=== PATIENT | female | born 1975 | race Caucasian/White ===

== ENCOUNTER 2022-04-25 17:00 | Emergency (ER) | payer OTHER, SELFPAY ==
--- NOTE | 2022-04-25 17:02 | ED.URI ---
HPI - URI/Sore Throat General Chief Complaint: Upper Respiratory Infection Stated Complaint: sore throat Time Seen by Provider: 04/25/22 17:12 Source: patient and RN notes reviewed Mode of arrival: ambulatory Limitations: no limitations History of Present Illness HPI Narrative: 47-year-old female presents concern for sore throat with white patches on her tonsils it started today. She reports a headache. She denies nasal congestion, rhinorrhea, cough, body aches, chills, sweats. MD elicited complaint: sore throat Related Data Home Medications Medication Instructions Recorded Confirmed budesonide 3 mg 3 mg PO DAILY 04/25/22 04/25/22 capsule,delayed,extended release citalopram 10 mg tablet 10 mg PO DAILY 04/25/22 04/25/22 trazodone 50 mg tablet 50 mg PO HS 04/25/22 04/25/22 Allergies Allergy/AdvReac Type Severity Reaction Status Date / Time No Known Allergies Allergy Mild Unverified 04/25/22 17:09 Review of Systems Review of Systems: CONSTITUTIONAL: Denies malaise, chills, sweats, or fever. EYES: Denies visual changes, redness, or discharge. ENT: Denies rhinorrhea, congestion, sinus pain, otalgia. Reports sore throat. CARDIOVASCULAR: Denies chest pain, palpitations, or edema. RESPIRATORY: Denies cough. Denies dyspnea. GASTROINTESTINAL: Denies abdominal pain, nausea, vomiting, diarrhea SKIN: Denies rash or itching. MUSCULOSKELETAL: Denies myalgia. NEUROLOGIC: Reports headache. All systems reviewed & are unremarkable except as noted in HPI and below PMFSH Family History Family History (Updated 09/24/18 @ 14:23 by DOCTOR UNKNOWN) Grandparent Diabetes mellitus Hypertension Cerebrovascular accident Carcinoma of colon Mother Family history of hypercholesterolemia Hypertension Father Hypertension Social History Social History Smoking status: Never smoker Alcohol intake: current Comments At time of signature, agree with nursing past medical, surgical, social and family history. There is no relevant family history pertinent to the presenting complaint Exam Narrative: GENERAL: Well-appearing, well-nourished, and in no acute distress. HEAD: Normocephalic EYES: PERRLA, conjunctivae clear ENT: Nares clear, no discharge. Mucous membranes moist. TM pearly hill with dull light reflex bilaterally; no tragal tenderness. Oropharynx mildly erythematous without lesions. Tonsils mildly enlarged and without exudate, no drooling, no hoarseness, no trismus, uvula midline. NECK: Supple. No lymphadenopathy CHEST: Clear to auscultation, breath sounds equal. No wheezing, rhonchi, rales, or stridor. No respiratory distress, speaks in full sentences. HEART: Regular rate and rhythm. No murmur heard. SKIN: Warm, dry, no rash. NEURO: Alert and oriented x3. PSYCH: Normal mood and affect Course Course Emergency Course: Patient is aware of diagnosis, understands and agrees to treatment plan. Anticipatory guidance given. Patient agrees to follow-up as directed and is aware of reasons to seek care at the emergency department. Portions of this record may have been created with voice recognition software Level of Care: Express Care Visit Vital Signs Vital signs: Reviewed. MDM - URI/Sore Throat MDM Narrative Medical decision making narrative: Differential diagnosis considered: Villa virus, strep pharyngitis, allergic rhinitis, upper respiratory tract infection, sinusitis, rhinosinusitis, nasopharyngitis. viral pharyngitis, otitis media, otitis externa, pneumonia, bronchitis, viral cough syndrome, viral syndrome, and influenza. Exam findings show no acute concerns or changes; patient is non-toxic appearing and is in no distress. Patient is appropriate for outpatient treatment and follow-up. Lab Data Attestation: I reviewed the patient's lab results. Critical Care Time Critical Care Time Critical Care Time: No Discharge Plan Discharge Clinical Impression: Pharyngitis Patient Disposition: Home, Self
[2022-04-25 17:10] VITALS: BP 137/73; PULSE 72; RESP 16; TEMP 37; O2SAT 100
== END 2022-04-25 17:43 | disposition home or self-care (01) ==
PROVIDERS: Emergency Provider Nurse Practitioner
DX: J02.9 Acute pharyngitis, unspecified (principal); Z20.822 Contact with and (suspected) exposure to COVID-19
CPT/HCPCS: 87081; 87426; 87804; 99203; C9803; G0463

== ENCOUNTER 2023-02-20 16:10 | Emergency (ER) | payer OTHER, SELFPAY ==
[2023-02-20 16:17] VITALS: BP 116/74; PULSE 68; RESP 16; TEMP 36.8; O2SAT 100
--- NOTE | 2023-02-20 16:22 | ED.URI ---
HPI - URI/Sore Throat General Stated Complaint: EARACHE Time Seen by Provider: 02/20/23 16:22 Source: patient Mode of arrival: ambulatory Limitations: no limitations History of Present Illness HPI Narrative: Patient is a 48-year-old female presents with right ear pain that started a week ago. Patient has taken ibuprofen once with no relief. Reports pain has just increased and feels like there is fluid in her ear. Denies any congestion, sore throat, cough, fever, chills, nausea, vomiting, diarrhea. Related Data Home Medications Medication Instructions Recorded Confirmed budesonide 3 mg 3 mg PO DAILY 04/25/22 04/25/22 capsule,delayed,extended release citalopram 10 mg tablet 10 mg PO DAILY 04/25/22 04/25/22 trazodone 50 mg tablet 50 mg PO HS 04/25/22 04/25/22 Allergies Allergy/AdvReac Type Severity Reaction Status Date / Time No Known Allergies Allergy Mild Unverified 04/25/22 17:09 Review of Systems Review of Systems: All systems reviewed & are unremarkable except as noted in HPI and below Constitutional: Constitutional: Denies body ache(s), Denies chills, Denies fever(s), Denies headache(s) and Denies malaise Eyes: Eyes: Denies blurry vision, Denies eye discharge and Denies irritation ENT: Reports otalgia, Denies headache(s), Denies nasal congestion, Denies nasal discharge and Denies sore throat Cardiovascular: Cardiovascular: Denies chest pain, Denies edema, Denies palpitations and Denies dyspnea on exertion Respiratory: Respiratory: Denies cough and Denies dyspnea on exertion Gastrointestinal: Gastrointestinal: Denies abdominal pain, Denies diarrhea, Denies nausea and Denies vomiting Musculoskeletal: Musculoskeletal: Denies back pain, Denies arthralgias and Denies muscle weakness Integumentary/Breasts: Skin/Breast: Denies pruritus and Denies rash Neurologic: Denies headache(s) Psychiatric: Psychiatric: Reports no additional psychiatric complaints Endocrine: Endocrine: Denies palpitations PMFSH Family History Family History Grandparent Diabetes mellitus Hypertension Cerebrovascular accident Carcinoma of colon Mother Family history of hypercholesterolemia Hypertension Father Hypertension Social History Social History (Reviewed 02/20/23 @ 16:46 by RADHA Barrios Smoking status: Never smoker Alcohol intake: current Comments At time of signature, agree with nursing past medical, surgical, social and family history. There is no relevant family history pertinent to the presenting complaint? Exam Const: General: cooperative, healthy appearing, no acute distress and well nourished Nutritional Appearance: well nourished Orientation/consciousness: patient oriented x3 Limitations: no limitations HENMT: Head: normal to inspection, normocephalic and atraumatic Ears: hearing grossly normal bilaterally, TM normal on the left, EAC's normal, no periauricular adenopathy and TM abnormal bulging on the right and erythematous on the right Face/Nose/Sinus: Normal external nose present, Normal nares present, Normal nasal mucous membranes and turbinates present, No nasal discharge present, normal facial exam and sinuses nontender Face and sinus: normal facial exam and sinuses nontender Mouth: Yes Normal oral and palatal mucosa present, Yes lip normal, Yes tongue normal and Yes moist mucous membranes Throat: posterior oropharynx normal, tonsils normal and uvula midline Eyes: General: appearance normal, both eyes and all related structures Alignment and Position: alignment normal and position normal Eyelids: eyelids normal Pupils: Equal, round and reactive pupils present EOM: EOMs intact bilaterally Neck: Neck: normal visual inspection, full ROM, no lymphadenopathy and supple Chest: Chest palpation & inspection: normal inspection of the chest Resp: Effort & Inspection: normal respiratory effort and able to speak in complete sentences
== END 2023-02-20 16:49 | disposition home or self-care (01) ==
PROVIDERS: Emergency Provider Nurse Practitioner Family
DX: H66.001 Acute suppurative otitis media without spontaneous rupture of ear drum, right ear (principal)
CPT/HCPCS: 99213; G0463

== ENCOUNTER 2023-03-10 16:31 | Emergency (ER) | payer OTHER, SELFPAY ==
[2023-03-10 16:52] VITALS: BP 111/74; PULSE 80; RESP 16; TEMP 36.3; O2SAT 100
--- NOTE | 2023-03-10 17:37 | ED.FEMALEGU ---
HPI - Female Genitourinary General Chief complaint: Urogenital-Female Stated complaint: Uti symptoms Source: patient and RN notes reviewed Mode of arrival: ambulatory Limitations: no limitations History of Present Illness HPI Narrative: 48-year-old female presenting for concern for UTI. Endorses burning with urination, frequency, and urgency since yesterday. Symptoms worsened throughout the night. Endorses hematuria today. Denies nausea, vomiting, flank pain, fevers or chills. Related Data Home Medications Medication Instructions Recorded Confirmed citalopram 10 mg tablet 10 mg PO DAILY 04/25/22 03/10/23 trazodone 50 mg tablet 50 mg PO HS 04/25/22 03/10/23 Allergies Allergy/AdvReac Type Severity Reaction Status Date / Time No Known Allergies Allergy Mild Unverified 03/10/23 16:49 Review of Systems Review of Systems: CONSTITUTIONAL: Denies body aches, fever, chills, or sweats. CARDIOVASCULAR: Denies chest pain, palpitations, or edema. RESPIRATORY: Denies cough or dyspnea. GASTROINTESTINAL: Denies abdominal pain, nausea, vomiting, or diarrhea. GENITOURINARY: Reports dysuria, frequency, urgency, hematuria, denies flank pain SKIN: Denies rash, itching, or wounds. MUSCULOSKELETAL: Denies back pain or myalgia. [facility] Past Medical History Medical History (Updated 03/10/23 @ 17:43 by Shirley Cota APRN) No pertinent past medical history Family History Family History Grandparent Diabetes mellitus Hypertension Cerebrovascular accident Carcinoma of colon Mother Family history of hypercholesterolemia Hypertension Father Hypertension Social History Social History Smoking status: Never smoker Alcohol intake: current Comments At time of signature, I have reviewed and agree with nursing past medical, surgical, social and family history unless otherwise noted. Please see nursing chart for further information. There is no relevant family history pertinent to the presenting complaint Exam Narrative: GENERAL: Well-appearing and in no acute distress. HEAD: Normocephalic EYES: EOMI. . ENT: Mucous membranes pink and moist. NECK: Normal AROM. Supple. CHEST: No respiratory distress. Clear to auscultation. HEART: Regular rate and rhythm. ABDOMEN: Soft, nontender, nondistended, normal active bowel sounds. No CVA tenderness MUSCULOSKELETAL: No bony tenderness. SKIN: Warm, dry, no rash. NEURO: No focal deficits. Alert and oriented x3. Gait steady. PSYCH: Normal affect. Course Course Emergency Course: Patient is aware of diagnosis, understands and agrees to treatment plan. Anticipatory guidance given. Patient agrees to follow-up as directed and is aware of reasons to seek care at the emergency department. Portions of this record may have been created with voice recognition software Level of Care: Express Care Visit Vital Signs Vital signs: Vital Signs Temperature 97.3 F L 03/10/23 16:52 Pulse Rate 80 03/10/23 16:52 Respiratory Rate 16 03/10/23 16:52 Blood Pressure 111/74 03/10/23 16:52 Pulse Oximetry 100 03/10/23 16:52 Temperature 97.3 F L 03/10/23 16:52 Pulse Rate 80 03/10/23 16:52 Respiratory Rate 16 03/10/23 16:52 Blood Pressure 111/74 03/10/23 16:52 Pulse Oximetry 100 03/10/23 16:52 Reviewed MDM - Female Genitourinary MDM Narrative Medical decision making narrative: Results of urine reviewed with patient. 3+ leuks, 3+ blood. Will culture. Rx Bactrim. advised supportive measures and signs/symptoms to go to the ER. Pt is appropriate for outpt treatment and f/u. Differential Diagnosis Differential diagnosis: Likely urinary tract infection, vaginitis, cystitis and other Lab Data Labs: Urine Glucose Negative Reference Range: Negative Urine Biliru
== END 2023-03-10 17:46 | disposition home or self-care (01) ==
PROVIDERS: Emergency Provider Nurse Practitioner Family
DX: N39.0 Urinary tract infection, site not specified (principal); B96.20 Unspecified Escherichia coli [E. coli] as the cause of diseases classified elsewhere
CPT/HCPCS: 81003; 87077; 87086; 87186; 99213; G0463